=== PATIENT | female | born 1980 | race Hispanic/Latino ===

== ENCOUNTER 2022-02-11 22:24 | Emergency (ER) | payer MEDICAID, OTHER ==
[~2022-02-11] VITALS: Ht 165.1 cm; Wt 106.1 kg
[2022-02-11] MEDS ORDERED: ONDANSETRON 4MG INJ IVP ONE (23:00)
[2022-02-11] MEDS ORDERED: 0.9%NACL 1000ML 1,000 ML IV SCH (23:00)
[2022-02-11 23:07] LABS: BASOPHILS % (AUTO) 0.5 % (0.0-5.0); EOSINOPHILS % (AUTO) 4.8 % (0.0-8.0); HEMATOCRIT 43.9 % (36-48); LYMPHOCYTES % (AUTO) 28.4 % (21.0-51.0); MEAN CORPUSCULAR HEMOGLOBIN 29.6 pg (27.0-33.0); MEAN CORPUSCULAR HGB CONC 33.5 g/dL (32.0-36.0); MEAN CORPUSCULAR VOLUME 88.5 fL (79-99); MONOCYTES % (AUTO) 8.1 % (3.0-13.0); NEUTROPHILS % (AUTO) 57.8 % (40.0-77.0); PLATELET COUNT (AUTO) 296 K/uL (130-400); RED BLOOD CELL COUNT(AUTO) 4.96 MIL/uL (4.00-5.50); RED CELL DISTRIBUTION WIDTH 12.2 % (11.0-15.5); WHITE BLOOD COUNT (AUTO) 9.2 K/uL (4.8-10.8)
[2022-02-11 23:19] LABS: CREATININE 0.8 mg/dL (0.5-1.5); POTASSIUM 3.5 mmol/L (3.5-5.1)
[2022-02-11 23:24] LABS: ALBUMIN 3.8 g/dL (3.5-5.0); BILIRUBIN,TOTAL 0.2 mg/dL (0.2-1.0); TOTAL PROTEIN, SERUM 7.5 g/dL (6.0-8.3)
[2022-02-11] MEDS ORDERED: KETOROLAC 15MG/ML VIAL (15MG/ML) IV ONE (23:30)
[2022-02-11] MEDS ORDERED: IOHEXOL-350 75 ML VIAL IV ONE (23:44)
[2022-02-12 00:11] VITALS: BP 159/79
[2022-02-12] MEDS ORDERED: IBUP-2070 PO (00:53)
[2022-02-12] MEDS ORDERED: LOPE2TAB26 PO (00:53)
[2022-02-12] MEDS ORDERED: LOPERAMIDE HCL 2 MG CAP PO ONE (01:00)
[2022-02-12] MEDS ORDERED: AZITHROMYCIN 250 MG TABLET PO ONE (01:00)
== END 2022-02-12 01:13 | disposition home or self-care (01) ==
LOC: EDH 22:24
DX: K52.9 Noninfective gastroenteritis and colitis, unspecified (principal); Z20.822 Contact with and (suspected) exposure to COVID-19; E11.9 Type 2 diabetes mellitus without complications; Z90.49 Acquired absence of other specified parts of digestive tract; Z79.899 Other long term (current) drug therapy
CPT/HCPCS: 36415; 74177; 80053; 83690; 84703; 85025; 87635; 96361; 96374; 96375; 99285; C9803; J1885; J2405; J7030; Q9967